=== PATIENT | female | born 1950 | race Native Hawaiian/Other Pacific Islander ===

== ENCOUNTER → 2023-10-20 13:30 | Outpatient (CLI) | payer MEDICARE, SELFPAY ==
--- NOTE | 2023-10-20 13:34 | DI.NM.S_ITS ---
PROCEDURE: NM IRASEMA PERF SPECT R&S PHARM Rest and pharmacological stress myocardial perfusion SPECT with gated imaging and ejection fraction RADIOPHARMACEUTICAL: 26.2 mCi Tc-99m tetrafosmin IV at rest and 25.8 mCi Tc-99m tetrafosmin IV at peak effect of pharmacological stress. [id number] was performed. INDICATIONS: HTN / SSS / ABN EKG TECHNIQUE: Radiopharmaceutical was injected at peak stress test, and also at rest. SPECT images were obtained. SPECT myocardial perfusion images were displayed in short axis, horizontal long axis, and vertical long axis views. Gated images were reviewed using SMRxT software. COMPARISON: None. CARDIAC STRESS: A pharmacologic stress test was performed under the supervision of an attending staff, using an infusion of regadenoson 0.4 mg IV. Hemodynamic data: There is normal blood pressure and heart rate response to pharmacologic stress. Symptoms: The patient denied anginal chest pain. EKG: No diagnostic changes of ischemia; no ectopy. FINDINGS: Raw data: There is good myocardial uptake of radiotracer. No significant motion artifacts. Atcm-xb-wqded ratio is 0.53 (normal is less than 0.38 for tetrafosmin tracer). There is evidence of diaphragmatic attenuation. Left ventricle function: Gated images demonstrate normal left ventricular wall thickening. No segmental wall motion abnormalities. No transient ischemic dilation; TID is 0.95 (normal less than 1.3). Left ventricle resting end diastolic volume is 125 mL. Left ventricle stress ejection fraction is >75%; normal range is above 45%. Myocardial perfusion: There is a large size, moderate intensity fixed inferior wall defect. No reversible perfusion defects. IMPRESSION: Low risk study. No evidence of pharmacologic induced ischemia. There is a fixed defect noted in the inferior wall however this occurs in the setting of diaphragmatic attenuation and lack of prone images. Wall motion is normal on gated imaging. Increased calculated LVEDV at 125 mL with hyperdynamic LV function. Dictated by: Marlin Quispe D.O. on 10/21/2023 at 16:26 Approved by: Marlin Quispe D.O. on 10/21/2023 at 16:29
== END ==
PROVIDERS: PCP Physician Assistant Medical; Referring Provider Internal Medicine Cardiovascular Disease; Visit Provider Internal Medicine Cardiovascular Disease
DX: I49.5 Sick sinus syndrome (principal); I10 Essential (primary) hypertension; R94.31 Abnormal electrocardiogram [ECG] [EKG]
CPT/HCPCS: 78452; 93017; A9502; J2785